=== PATIENT | female | born 2000 | race Caucasian/White ===

== ENCOUNTER 2020-03-29 12:36 | Outpatient (RCR) | payer SELFPAY ==
[2020-03-29] VITALS (11 sets, daily range): BP systolic 102–122; BP diastolic 61–74; PULSE 82–105; TEMP 98.3–99.4
[~2020-03-29] VITALS: Ht 165.1 cm; Wt 60.1 kg
[~2020-03-29 12:36] MED LIST: IRON18 MG1 PO
== END 2020-06-11 | disposition home or self-care (01) ==
LOC: EUO
DX: D50.0 Iron deficiency anemia secondary to blood loss (chronic) (principal); N92.1 Excessive and frequent menstruation with irregular cycle
CPT/HCPCS: J7050; P9016

== ENCOUNTER → 2020-04-12 | Outpatient (CLI) | payer SELFPAY | LOC: COL.RAD 15:45 | DX: N83.8 Other noninflammatory disorders of ovary, fallopian tube and broad ligament (principal); D50.0 Iron deficiency anemia secondary to blood loss (chronic); N93.9 Abnormal uterine and vaginal bleeding, unspecified ==